=== PATIENT | male | born 1960 | race Caucasian/White ===

== ENCOUNTER 2019-12-30 00:55 | Inpatient (IN) | payer BC ==
[2019-12-30] MEDS ORDERED: ACETAMINOPHEN TAB 325 MG TAB PO PRN (01:14)
[2019-12-30] MEDS ORDERED: NALOXONE 0.4 MG/ML 1 ML VIAL IV PRN ×2 (01:15→09:08)
[2019-12-30] MEDS ORDERED: dexAMETHasone 2 MG TAB PO ONE (01:30)
--- NOTE | 2019-12-30 02:32 | ED ---
General Adult HPI - General Source: patient, EMS, RN notes reviewed Mode of arrival: EMS Limitations: no limitations <Antonio Banks - Last Filed: 12/30/19 02:25> <Barbara Galo - Last Filed: 12/30/19 07:59> - General Chief complaint: Shortness of Breath Stated complaint: dyspnea Time Seen by Provider: 12/30/19 01:17 - History of Present Illness Initial comments: 59-year-old male with a past medical history of hypertension presents from [facility] for positive Covid test and shortness of breath. Patient has had symptoms for the past 10 days. He reports he has had a cough and is now feeling short of breath. Patient was found to have low oxygenation while at [facility] 92-95% while resting and down into the 80s with any type of exertion. CT at that time showed patchy groundglass and pulmonary opacities in the upper and lower lung [place]. 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 Patient was not received within imaging disc for CAT scan or x-ray. (Antonio Banks) - Related Data Allergies Allergy/AdvReac Type Severity Reaction Status Date / Time No Known Drug Allergies Allergy Anaphylaxis Verified 12/30/19 01:42 Review of Systems ROS Other: All systems not noted in ROS Statement are negative. <Antonio Banks - Last Filed: 12/30/19 02:25> ROS Other: All systems not noted in ROS Statement are negative. <Barbara Galo P - Last Filed: 12/30/19 07:59> ROS Statement: Those systems with pertinent positive or pertinent negative responses have been documented in the HPI. Past Medical History Past Medical History: Hypertension Additional Past Surgical History / Comment(s): Urinary tract hx Past Psychological History: No Psychological Hx Reported <Antonio Banks - Last Filed: 12/30/19 02:25> General Exam Limitations: no limitations General appearance: alert, in no apparent distress Head exam: Present: atraumatic, normocephalic, normal inspection Eye exam: Present: normal appearance, PERRL, EOMI. Absent: scleral icterus, conjunctival injection, periorbital swelling ENT exam: Present: normal exam, mucous membranes moist Neck exam: Present: normal inspection, full ROM. Absent: tenderness, meningismus, lymphadenopathy Respiratory exam: Present: normal lung sounds bilaterally. Absent: respiratory distress, wheezes, rales, rhonchi, stridor Cardiovascular Exam: Present: regular rate, normal rhythm, normal heart sounds. Absent: systolic murmur, diastolic murmur, rubs, gallop, clicks <Antonio Banks - Last Filed: 12/30/19 02:25> Course Vital Signs 12/30/19 12/30/19 12/30/19 01:33 02:25 02:59 Temperature 98.5 F Pulse Rate 82 Respiratory 18 18 Rate Blood Pressure 151/116 144/98 O2 Sat by Pulse 96 Oximetry 12/30/19 12/30/19 03:01 06:53 Temperature Pulse Rate 76 70 Respiratory 18 18 Rate Blood Pressure 125/45 O2 Sat by Pulse 97 98 Oximetry Medical Decision Making <Antonio Banks - Last Filed: 12/30/19 02:25> - Lab Data Result diagrams: 12/30/19 01:44 12/30/19 01:44 <Barbara Galo P - Last Filed: 12/30/19 07:59> - Medical Decision Making Patient is 96% on 4 L here in the emergency room. Vitals are otherwise stable. Patient is mildly hypertensive however is anxious at this time. Laboratory evaluation is relatively unremarkable. White count of 7. Hemoglobin of 15.1. Lymphocytes 0.8. D-dimer 0.51. Troponin 5 and 4 with a reference range of 2- 20. ABG shows pO2 of 73. Patient will be admitted for further monitoring with pulmonary consultation. (Antonio Banks) Disposition Is patient prescribed a controlled substance at d/c from ED?: No Time of Disposition: 02:31 <Antonio Banks - Last Filed: 12/30/19 02:25> <Barbara Galo P - Last Filed: 12/30/19 07:59> Clinical Impression: COVID-19, Acute respiratory failure with hypoxia Disposition: ADMITTED IP TO THIS HOSP Condition: Critical
[2019-12-30 02:33] LABS: Basophils # (A) 0.1 k/uL (0-0.2); Basophils % (A) 1 %; Eosinophils % (A) 0 %; HCT 45.8 % (39.0-53.0); HGB 15.5 gm/dL (13.0-17.5); Lymphocytes # (A) 0.4 k/uL (1.0-4.8); Lymphocytes % (A) 8 %; MCH 31.9 pg (25.0-35.0); MCHC 33.9 g/dL (31.0-37.0); MCV 94.3 fL (80.0-100.0); Mean Platelet Volume 6.8; Monocytes # (A) 0.3 k/uL (0-1.0); Monocytes % (A) 5 %; Neutrophils # (A) 4.2 k/uL (1.3-7.7); Neutrophils % (A) 82 %; Platelet Count 387 k/uL (150-450); RBC 4.86 m/uL (4.30-5.90); RDW 12.6 % (11.5-15.5); WBC 5.1 k/uL (3.8-10.6)
[2019-12-30] MEDS ORDERED: SODIUM CHLORIDE 0.9% 500 ML 500 ML IV STA (02:36)
[2019-12-30] MEDS ORDERED: SODIUM CHLORIDE 0.9% 1,000 ML IV STA (02:36)
[2019-12-30 02:46] LABS: D-Dimer 0.45 mg/L FEU (<0.60); Partial Thromboplastin Time 22.8 sec (22.0-30.0); Prothrombin Time 10.2 sec (9.0-12.0)
[2019-12-30 02:50] LABS: ALT 39 U/L (4-49); AST 43 U/L (17-59); African American GFR (CKD) >90 (>60 ml/min/1.73 sqM); Albumin 3.4 g/dL (3.5-5.0); Alkaline Phosphatase 54 U/L (38-126); Anion Gap 8 mmol/L; Blood Urea Nitrogen 25 mg/dL (9-20); C Reactive Protein 29.8 mg/L (<10.0); Calcium 8.8 mg/dL (8.4-10.2); Carbon Dioxide 21 mmol/L (22-30); Chloride 109 mmol/L (98-107); Glucose 142 mg/dL (74-99); LDH 664 U/L (313-618); Non-African American GFR(CKD) >90 (>60 ml/min/1.73 sqM); Potassium 4.5 mmol/L (3.5-5.1); Sodium 138 mmol/L (137-145); Total Bilirubin 0.7 mg/dL (0.2-1.3); Total Protein 6.5 g/dL (6.3-8.2)
[2019-12-30] MEDS ORDERED: PNEUMONIA PROTOCOL UTILIZED 1 EACH MISC PO PRN (09:08)
[2019-12-30] MEDS ORDERED: bisacodyL 5 MG TABLET.DR PO PRN (09:08)
[2019-12-30] MEDS ORDERED: ALPRAZolam 0.25 MG TAB PO PRN (09:08)
[2019-12-30] MEDS ORDERED: ONDANSETRON 4 MG/2 ML VIAL IVP PRN (09:08)
[2019-12-30] MEDS ORDERED: HYDROcodone/APAP 5-325MG 1 EACH TAB PO PRN (09:08)
[2019-12-30] MEDS ORDERED: MORPHINE SULFATE 4 MG/ML SYRINGE IV PRN (09:08)
[2019-12-30] MEDS ORDERED: BENZOCAINE/MENTHOL LOZENG 1 EACH LOZENGE MUCOUS MEM PRN (09:08)
[2019-12-30 09:41] LABS: Ferritin 902.1 ng/mL (22.0-322.0)
[2019-12-30] MEDS: guaiFENesin 600 MG TABLET.ER PO SCH ×2 (09:58→21:39)
[2019-12-30] MEDS: dexAMETHasone 2 MG TAB PO SCH (09:59)
[2019-12-30] MEDS: SODIUM CHLORIDE 0.9% 1,000 ML IV SCH ×3 (10:01→19:39)
--- NOTE | 2019-12-30 13:13 | XR ---
EXAMINATION TYPE: XR chest 2V DATE OF EXAM: 12/30/2019 COMPARISON: NONE HISTORY: Shortness of breath TECHNIQUE: Frontal and lateral views of the chest are obtained. FINDINGS: Scattered senescent parenchymal changes noted. Hyperinflation compatible with COPD. Mild patchy basilar densities may reflect developing infiltrate. Correlate clinically and progress st udies are recommended. Heart size is stable. Mediastinal structures are stable and grossly unremarkable. No evidence for hilar prominence. Degenerative changes dorsal spine. IMPRESSION: 1. Mild patchy basilar densities may reflect developing infiltrate. Correlate clinically and progress studies are recommended.
[2019-12-30] MEDS: ALBUTEROL HFA INHALER INHALATION PRN ×2 (13:36→19:51)
--- NOTE | 2019-12-30 18:22 | P.HPIM ---
History of Present Illness H&P Date: 12/30/19 (notifed of patient at 0800) Chief Complaint: shortness of breath Patient is a 59-year-old male with a past medical history of hypertension who presented as a transfer [facility] due to Coreg 19 infection. Blood [place] he underwent an extensive evaluation. He was found to be positive for COVID 19. He underwent a CT of the chest which was negative for any signs of pulmonary embolism but did demonstrate bilateral interstitial infiltrates. He was noted to have room air saturation of 92-95% on resting and down to the 80s of any type of exertion He was requiring oxygen at 4 L nasal cannula. There he was started on IV fluids and was transferred here for further monitoring. He had been confirmed as a positive on 12/19. In the ER he was started on dexamethasone. Patient seen and examined at bedside in the ER. He reports that he was diagnosed with Covid 19 approximately 11 days ago. He states that he first noti romulo a loss of taste and smell and then started having sinus symptoms. Initially he was feeling better, his sense of taste and smell returned, his body aches improved, and his overall fatigue improved. However 3 days ago his dyspnea became worse and he started feeling worse. His children are concerned about how short of breath he wasn't unable to do his normal activities and the therefore asked him to come to the emergency department. He denies any nausea, vomiting, or diarrhea. He reports shortness of breath that is worse when talking and with ambulation and better at rest. He reports that his appetite has been decreased due to his work of breathing. He has no other complaints currently. Review of Systems Pertinent positives and negatives as discussed in HPI, a complete review of systems was performed and all other systems are negative. Past Medical History Past Medical History: Hyperlipidemia, Hypertension History of Any Multi-Drug Resistant Organisms: None Reported Additional Past Surgical History / Comment(s): Urinary tract hx Past Psychological History: No Psychological Hx Reported - Past Family History Mother Family Medical History: Diabetes Mellitus, Hypertension, Myocardial Infarction ([place]) Father Additional Family Medical History / Comment(s): Myasthenia Gravis Medications and Allergies Home Medications Medication Instructions Recorded Confirmed Type Atorvastatin [Lipitor] 40 mg PO DAILY 12/30/19 12/30/19 History Telmisartan 80 mg PO DAILY 12/30/19 12/30/19 History Allergies Allergy/AdvReac Type Severity Reaction Status Date / Time No Known Drug Allergies Allergy Anaphylaxis Verified 12/30/19 08:21 Physical Exam Osteopathic Statement: *. No significant issues noted on an osteopathic structural exam other than those noted in the History and Physical/Consult. Vitals: Vital Signs Temp Pulse Resp BP Pulse Ox 12/30/19 06:53 70 18 125/45 98 12/30/19 03:01 76 18 97 12/30/19 02:59 144/98 12/30/19 02:25 18 12/30/19 01:33 98.5 F 82 18 151/116 96 Intake and Output 12/29/19 12/30/19 12/30/19 22:59 06:59 14:59 Other: Weight 108.862 kg General: Ill-appearing, moderate distress, appears at stated age Derm: warm, dry Head: atraumatic, normocephalic, symmetric Eyes: EOMI, no lid lag, anicteric sclera, pupils equal round reactive to light ENT: Nose and ears atraumatic, no thrush, no pharyngeal erythema Neck: No thyromegaly, no cervical lymphadenopathy, trachea midline, supple Mouth: no lip lesion, mucus membranes dry Cardiovascular: S1S2 reg tachycardic, positive posterior tibial pulse bilateral, no edema, capillary refill less than 2 seconds Lungs: Faint rhonchi bilateral bases, no accessory muscle use Abdominal: soft, nontender to palpation, no guarding, no appreciable organomegaly, normal bowel sounds Ext: no gross muscle atrophy, muscle strength muscle strength 5 out of 5 in all 4 extremities, no contractures Neuro: CN II-XI grossly intact, light touch intact all 4 extremities, finger to nose within normal limits, Psych: Alert, oriented, appropriate affect Results CBC & Chem 7: 12/30/19 01:44 12/30/19 01:44 Labs: Abnormal Lab Results - Last 24 Hours (Table) 12/30/19 12/30/19 Range/Units 01:44 01:44 Lymphocytes # 0.4 L (1.0-4.8) k/uL Chloride 109 H (98-107) mmol/L Carbon Dioxide 21 L (22-30) mmol/L BUN 25 H (9-20) mg/dL Glucose 142 H (74-99) mg/dL Lactate Dehydrogenase 664 H (313-618) U/L C-Reactive Protein 29.8 H (<10.0) mg/L Albumin 3.4 L (3.5-5.0) g/dL Assessment and Plan Assessment: Covid 19 pneumonia with acute hypoxic respiratory failure -Continue with dexamethasone -Consult pulmonary - Not candidate for remdesevir due to length of symptoms -Due to his initial improvement and then worsening will await pro-calcitonin, continue with doxycycline and Rocephin for possible bacterial pneumonia -Fluid and B are negative -Mucinex -Sputum culture if able -Vitamin C, zinc, and vitamin D -D-dimer normal -Follow ferritin, LDH, CPK, and troponin Hypertension, controlled -Hold ARB -Follow blood pressures Dyslipidemia -Lipitor The patient is admitted with an anticipated greater than 2 midnight stay for evaluation of Covid 19 pneumonia with associated hypoxemia. Surrogate decision-maker: Oldest son Elie CODE STATUS: Full DVT prophylaxis: Lovenox Discussed with: rylee Hensley Anticipated discharge date: 3-[address]: home A total of 65 minutes was spent on the care of this complex patient more than 50% of the time was spent in counseling and care coordination.
[2019-12-30] MEDS: ZINC SULFATE 220 MG CAP PO SCH (19:39)
[2019-12-30] MEDS: DOXYCYCLINE 100 MG in SODIUM CHLORIDE 0.9% 100 ML IVPB SCH (19:40)
[2019-12-30] MEDS ORDERED: MELATONIN 3 MG TABLET PO SCH (21:00)
[2019-12-30] MEDS: MELATONIN 5 MG TABLET PO SCH (21:40)
[2019-12-31 05:58] LABS: Basophils # (A) 0.1 k/uL (0-0.2); Basophils % (A) 0 %; Eosinophils % (A) 0 %; HCT 41.5 % (39.0-53.0); HGB 13.8 gm/dL (13.0-17.5); Lymphocytes # (A) 0.8 k/uL (1.0-4.8); Lymphocytes % (A) 6 %; MCH 32.1 pg (25.0-35.0); MCHC 33.3 g/dL (31.0-37.0); MCV 96.3 fL (80.0-100.0); Mean Platelet Volume 7.6; Monocytes # (A) 0.8 k/uL (0-1.0); Monocytes % (A) 6 %; Neutrophils # (A) 11.6 k/uL (1.3-7.7); Neutrophils % (A) 86 %; Platelet Count 375 k/uL (150-450); RBC 4.31 m/uL (4.30-5.90); RDW 12.7 % (11.5-15.5); WBC 13.5 k/uL (3.8-10.6)
[2019-12-31 06:14] LABS: D-Dimer 0.86 mg/L FEU (<0.60); INR 1.1 (<1.2); Partial Thromboplastin Time 22.6 sec (22.0-30.0); Prothrombin Time 10.8 sec (9.0-12.0)
[2019-12-31] MEDS: ALBUTEROL HFA INHALER INHALATION PRN ×3 (07:38→16:57)
[2019-12-31] MEDS: SODIUM CHLORIDE 0.9% 1,000 ML IV SCH ×2 (09:20→13:24)
[2019-12-31] MEDS: ZINC SULFATE 220 MG CAP PO SCH (09:21)
[2019-12-31] MEDS: DOXYCYCLINE 100 MG in SODIUM CHLORIDE 0.9% 100 ML IVPB SCH ×2 (09:21→21:57)
[2019-12-31] MEDS: CHOLECALCIFEROL 400 UNIT TAB PO SCH (09:21)
[2019-12-31] MEDS: ASCORBIC ACID 500 MG TAB PO SCH (09:21)
[2019-12-31] MEDS: guaiFENesin 600 MG TABLET.ER PO SCH ×2 (09:21→21:46)
[2019-12-31 09:36] LABS: African American GFR (CKD) 96.4 (60.0-200.0); Anion Gap 7.8 mmol/L (4.00-12.00); C Reactive Protein 0.9 mg/dL (0.0-0.8); Calcium 8.8 mg/dL (8.7-10.3); Carbon Dioxide 22.2 mmol/L (21.6-31.8); Magnesium 1.8 mg/dL (1.5-2.4); Non-African American GFR(CKD) 83.2 (60.0-200.0); Potassium 4.5 mmol/L (3.5-5.5)
[2019-12-31 09:47] LABS: Ferritin 756.9 ng/mL (22.0-322.0)
--- NOTE | 2019-12-31 10:02 | ECHOF ---
Referral Reason:shortness of breath MEASUREMENTS -------- HEIGHT: 182.9 cm WEIGHT: 108.9 kg BP: RVIDd: 2.8 cm (< 3.3) IVSd: 1.5 cm (0.6 - 1.1) LVIDd: 4.1 cm (3.9 - 5.3) LVPWd: 1.8 cm (0.6 - 1.1) IVSs: 2.1 cm LVIDs: 3.1 cm LVPWs: 1.9 cm LA Diam: 4.3 cm (2.7 - 3.8) Ao Diam: 3.4 cm (2.0 - 3.7) AV Cusp: 2.6 cm (1.5 - 2.6) LA Diam: 4.7 cm (2.7 - 3.8) MV EXCURSION: 16.774 mm (> 18.000) MV EF SLOPE: 69 mm/s (70 - 150) EPSS: 0.4 cm MV E Onofre: 0.73 m/s MV DecT: 163 ms MV A Onofre: 0.75 m/s MV E/A Ratio: 0.98 RAP: 5.00 mmHg RVSP: 12.04 mmHg FINDINGS -------- Sinus rhythm. This was a technically adequate study. The left ventricular size is normal. There is moderate concentric left ventricular hypertrophy. O verall left ventricular systolic function is low-normal with, an EF between 50 - 55 %. The right ventricle is normal in size. The left atrium is mildly dilated. The right atrial size is normal. There is mild aortic valve sclerosis. There is no evidence of aortic regurgitation. Mild mitral regurgitation is present. Mild tricuspid regurgitation present. Right ventricular systolic pressure is normal at < 35 mmHg. There is no pulmonic regurgitation present. The aortic root size is normal. There is no pericardial effusion. CONCLUSIONS -------- 1. The left ventricular size is normal. 2. There is moderate concentric left ventricular hypertrophy. 3. Overall left ventricular systolic function is low-normal with, an EF between 50 - 55 %. 4. The right ventricle is normal in size. 5. The left atrium is mildly dilated. 6. The right atrial size is normal. 7. There is mild aortic valve sclerosis. 8. Mild mitral regurgitation is present. 9. Mild tricuspid regurgitation present. 10. There is no pulmonic regurgitation present. 11. The aortic root size is normal. 12. There is no pericardial effusion. FREELANCE COURT REPORTER: Soraya Betts RDCS
[2019-12-31] MEDS: dexAMETHasone 2 MG TAB PO SCH (10:08)
--- NOTE | 2019-12-31 15:47 | P.PN ---
Subjective Progress Note Date: 12/31/19 (delayed charting seen at 1000 ) Principal diagnosis: shortness of breath Patient is a 59-year-old male with a past medical history of hypertension who presented as a transfer from [facility] [place] due to Coreg 19 infection. Blood [place] he underwent an extensive evaluation. He was found to be positive for COVID 19. He underwent a CT of the chest which was negative for any signs of pulmonary embolism but did demonstrate bilateral interstitial infiltrates. He was noted to have room air saturation of 92-95% on resting and down to the 80s of any type of exertion He was requiring oxygen at 4 L nasal cannula. There he was started on IV fluids and was transferred here for further monitoring. He had been confirmed COVID-19 positive on 12/19. In the ER he was started on dexamethasone. His was also started on rocehphin and doxycycline for possible secondary bacterial pneumonia. He was not a candidate for remdesevir due to duration of symptoms. Patient seen and examined at bedside. Still with SOB and chest pain, no nausea, no vomiting, no diarrhea. Appetite well. All questions answered regarding discharge plan. General: ill appearing, mild distress, appears at stated age Derm: warm, dry Head: atraumatic, normocephalic, symmetric Eyes: EOMI, no lid lag, anicteric sclera Mouth: no lip lesion, mucus membranes dry Cardiovascular: S1S2 reg, no murmur, positive posterior tibial pulse bilateral, Lungs: rhonchi left base, no accessory muscle use Abdominal: soft, nontender to palpation, no guarding, no appreciable orga nomegaly Ext: no gross muscle atrophy, no edema, no contractures Neuro: CN II-XI grossly intact, no focal neuro deficits Psych: Alert, oriented, appropriate affect Covid 19 pneumonia with acute hypoxic respiratory failure - Continue with dexamethasone - Await pulm recs - Not candidate for remdesevir due to length of symptoms - Procalcitonin normal, will stop ABX - Flu A and B are negative - Mucinex - Sputum culture if able - Vitamin C, zinc, and vitamin D - D-dimer mild elevation - Ferritin and LDH improving - CPK normal - troponin normal - echo normal Hypertension, controlled - Hold ARB - Follow blood pressures Dyslipidemia - Lipitor DVT prophylaxis: Lovenox Discussed with: rylee Hensley Anticipated discharge date: 2-[address]: home A total of 45 minutes was spent on the care of this complex patient more than 50% of the time was spent in counseling and care coordination. Objective - Vital Signs Vital signs: Vital Signs Temp 97.7 F 12/31/19 13:00 Pulse 63 12/31/19 13:00 Resp 20 12/31/19 13:00 BP 144/91 12/31/19 13:00 Pulse Ox 97 12/31/19 13:00 Intake & Output 12/30/19 12/31/19 12/31/19 18:59 06:59 18:59 Intake Total 1000 Balance 1000 Intake: Oral 1000 Other: # Voids 2 - Labs CBC & Chem 7: 12/31/19 04:56 12/31/19 04:56 Labs: Abnormal Lab Results - Last 24 Hours (Table) 12/31/19 12/31/19 12/31/19 Range/Units 04:56 04:56 04:56 WBC 13.5 H (3.8-10.6) k/uL Neutrophils # 11.6 H (1.3-7.7) k/uL Lymphocytes # 0.8 L (1.0-4.8) k/uL D-Dimer 0.86 H (<0.60) mg/L FEU BUN/Creatinine Ratio 21.00 H (12.00-20.00) Ratio Glucose 128 H (70-110) mg/dL Ferritin 756.9 H (22.0-322.0) ng/mL Lactate Dehydrogenase 335 H (120-246) U/L C-Reactive Protein 0.9 H (0.0-0.8) mg/dL Microbiology - Last 24 Hours (Table) 12/30/19 09:32 Blood Culture - Preliminary Blood No Growth after 24 hours 12/30/19 09:22 Blood Culture - Preliminary Blood No Growth after 24 hours 12/30/19 01:44 Blood Culture - Preliminary Blood No Growth after 24 hours
--- NOTE | 2019-12-31 16:47 | CONS ---
CONSULTATION PULMONARY/CRITICAL CARE CONSULTATION: DATE OF SERVICE: 12/31/2019 This is a 59-year-old gentleman who resides in the [facility]. He has a history of hypertension. The patient was tested for COVID and was tested positive. He has not been feeling well for the last 7 or 10 days or so. His complaints include chest tightness, cough, shortness of breath, chest congestion. His saturations were apparently in the low normal range at the [facility]. But when he was exerting himself, his saturations dropped down into the 80s. His chest CT apparently showed classic patchy ground-glass opacities consistent with COVID pneumonitis. They apparently had no beds up in that area, and the patient was transferred down here. Currently, he is feeling okay. He feels a bit better today than he did yesterday. His complaints are similar to what I have mentioned including shortness of breath, chest congestion, cough, chest tightness, and minimal phlegm production. ALLERGIES: Denied. HOME MEDICATIONS: Include telmisartan and atorvastatin. MEDICAL HISTORY: Hypertension and hyperlipidemia. SURGICAL HISTORY: Remote. FAMILY HISTORY: Positive for mother with diabetes, hypertension, myocardial infarction and a father with myasthenia gravis. ALLERGIES: Denied. Medications as I mentioned. SOCIAL HISTORY: Negative for tobacco, alcohol or illicit drug use. REVIEW OF SYSTEMS: CONSTITUTIONAL: Negative. NEUROLOGIC: Negative. HEENT: Negative. CARDIOVASCULAR: Negative. PULMONARY: Shortness of breath, chest congestion, chest tightness, cough, minimal phlegm production. GI: Negative. : Negative. RHEUMATOLOGIC: Negative. IMMUNOLOGIC: Negative. ENDOCRINOLOGIC: Negative. DERMATOLOGIC: Negative. Currently, vital signs are reviewed. Temperature is 97.7, heart rate 63, respiratory rate 20, blood pressure 144/91 mean 108, 3 L saturation 97%. Appears in no acute distress. He was eating his lunch at the time of the evaluation. There is no conversational dyspnea, use of accessory muscles or audible wheezing. HEENT: Examination is grossly unremarkable. NECK: Supple, full range of motion. No adenopathy. Neck veins are flat. CARDIOVASCULAR: Examination reveals regular rhythm and rate. S1, S2 normal. LUNGS: Reveal a few scattered rhonchi. Breath sounds are not too bad. No wheezes or crackles. ABDOMEN: Soft, bowel sounds are heard. EXTREMITIES: Intact. No cyanosis, clubbing, or edema. SKIN: Without rash. NEUROLOGIC: Examination is brief but nonfocal. LABS: Reviewed. White count 13.5, hemoglobin 13.8, hematocrit 41.5, platelet count 375,000. PT, INR, PTT normal. D-dimer 0.84 and then followup with 0.86. Sodium 138, potassium 4.5, chloride 108, CO2 is 22, anion gap is 7.8, BUN and creatinine were 21 and 1, glucose 128, ferritin 756 and LDH was 335, which is down from 664. C-reactive protein continues to decline from 29.8 to 26.8 to 0.9. Procalcitonin was 0.05. Microbiologic biologic studies are negative. Chest x-ray shows some very mild patchy basilar densities. ASSESSMENT: 1. COVID-19 pneumonitis/pneumonia, relatively mild at this point. 2. History of hypertension. 3. Hyperlipidemia. 4. Mild hypoxemia. PLAN: Currently, the patient is doing well. He does not need Remdesivir at this time. Currently, he is on ceftriaxone. He is getting albuterol inhaler. The patient is also on Vibramycin. Probably these antibiotics to be discontinued. The patient is on zinc. The patient should be on melatonin, zinc, vitamin C, vitamin D, Pepcid, and Decadron. Again, standard antibiotics at this time are probably not indicated. His procalcitonin level is low. No need for Remdesivir at this point. Followup chest x-ray. Will continue to follow. MMODL / IJN: [id number] /
[2020-01-01] MEDS: ALBUTEROL HFA INHALER INHALATION PRN ×4 (00:14→19:38)
[2020-01-01] MEDS: MELATONIN 5 MG TABLET PO SCH ×2 (01:49→20:54)
[2020-01-01] MEDS: guaiFENesin 600 MG TABLET.ER PO SCH ×2 (08:56→20:39)
[2020-01-01] MEDS: ASCORBIC ACID 500 MG TAB PO SCH (08:56)
[2020-01-01] MEDS: ZINC SULFATE 220 MG CAP PO SCH (08:56)
[2020-01-01] MEDS: CHOLECALCIFEROL 400 UNIT TAB PO SCH (08:56)
[2020-01-01] MEDS: dexAMETHasone 2 MG TAB PO SCH (08:56)
[2020-01-01] MEDS: DOXYCYCLINE 100 MG in SODIUM CHLORIDE 0.9% 100 ML IVPB SCH (08:57)
--- NOTE | 2020-01-01 09:56 | XR ---
EXAMINATION TYPE: XR chest 1V portable DATE OF EXAM: 01/01/2020 CLINICAL HISTORY: Difficulty breathing and covid pneumonia progress study. TECHNIQUE: Single AP portable upright view of the chest is obtained. COMPARISON: Chest x-ray from 2 days earlier FINDINGS: Persistent low lung volumes with right mid lung and peripheral left mid to lower lung incr eased opacity. Patchy opacity right upper lung redemonstrated. No pleural effusion or pneumothorax se en bilaterally. Cardiac silhouette size stable and upper limits of normal with ectatic aortic knob ca using right-sided tracheal deviation redemonstrated. Osseous structures are intact. Overlying EKG alanna ds. IMPRESSION: Low lung volumes with persistent bilateral multifocal acute infiltrates greatest in the p eriphery. No significant change from prior. Findings correlate with covid-19 infection.
[2020-01-01 10:40] LABS: Basophils # (A) 0.1 k/uL (0-0.2); Basophils % (A) 1 %; Eosinophils % (A) 0 %; HCT 41.2 % (39.0-53.0); HGB 13.8 gm/dL (13.0-17.5); Lymphocytes # (A) 1.2 k/uL (1.0-4.8); Lymphocytes % (A) 12 %; MCH 31.8 pg (25.0-35.0); MCHC 33.4 g/dL (31.0-37.0); MCV 95.3 fL (80.0-100.0); Mean Platelet Volume 7.2; Monocytes # (A) 0.8 k/uL (0-1.0); Monocytes % (A) 8 %; Neutrophils # (A) 7.7 k/uL (1.3-7.7); Neutrophils % (A) 77 %; Platelet Count 351 k/uL (150-450); RBC 4.33 m/uL (4.30-5.90); RDW 12.8 % (11.5-15.5); WBC 10.1 k/uL (3.8-10.6)
[2020-01-01 10:56] LABS: ALT 51 U/L (4-49); AST 31 U/L (17-59); African American GFR (CKD) >90 (>60 ml/min/1.73 sqM); Albumin 2.8 g/dL (3.5-5.0); Alkaline Phosphatase 48 U/L (38-126); Anion Gap 3 mmol/L; Blood Urea Nitrogen 17 mg/dL (9-20); Calcium 8.5 mg/dL (8.4-10.2); Carbon Dioxide 28 mmol/L (22-30); Chloride 107 mmol/L (98-107); Globulin 2.7 g/dL; Glucose 113 mg/dL (74-99); Non-African American GFR(CKD) >90 (>60 ml/min/1.73 sqM); Potassium 4.1 mmol/L (3.5-5.1); Sodium 138 mmol/L (137-145); Total Bilirubin 0.5 mg/dL (0.2-1.3); Total Protein 5.5 g/dL (6.3-8.2)
[2020-01-01] MEDS: SODIUM CHLORIDE 0.9% 1,000 ML IV SCH ×2 (11:13→13:45)
--- NOTE | 2020-01-01 12:40 | P.PN ---
Subjective Progress Note Date: 01/01/20 (delayed charting see at 1030) Principal diagnosis: shortness of breath Patient is a 59-year-old male with a past medical history of hypertension who presented as a transfer from [facility] [place] due to Coreg 19 infection. Blood [place] he underwent an extensive evaluation. He was found to be positive for COVID 19. He underwent a CT of the chest which was negative for any signs of pulmonary embolism but did demonstrate bilateral interstitial infiltrates. He was noted to have room air saturation of 92-95% on resting and down to the 80s of any type of exertion He was requiring oxygen at 4 L nasal cannula. There he was started on IV fluids and was transferred here for further monitoring. He had been confirmed COVID-19 positive on 12/19. In the ER he was started on dexamethasone. His was also started on rocehphin and doxycycline for possible secondary bacterial pneumonia. He was not a candidate for remdesevir due to duration of symptoms. He continued to improve slowly. Pulmonary in agreement with zinc, vit C, vit D, melatonin, and dexamethasone. Patient seen and examined at bedside.Feeling better shortness of breath i mproving, chest pain improving, appetite intact, feeling a little better. All questions answered regarding discharge plan, likely d/c tomorrow or Sunday with wheelchair van General: ill appearing, no distress, appears at stated age Derm: warm, dry Head: atraumatic, normocephalic, symmetric Eyes: EOMI, no lid lag, anicteric sclera Mouth: no lip lesion, mucus membranes dry Cardiovascular: S1S2 reg, no murmur, positive posterior tibial pulse bilateral, Lungs Decreased bs bilateral, no accessory muscle use Abdominal: soft, nontender to palpation, no guarding, no appreciable organomegaly Ext: no gross muscle atrophy, no edema, no contractures Neuro: CN II-XI grossly intact, no focal neuro deficits Psych: Alert, oriented, appropriate affect Covid 19 pneumonia with acute hypoxic respiratory failure, costochondritis - Continue with dexamethasone - Pulm recs appreciated - Not candidate for remdesevir due to length of symptoms - Procalcitonin normal off abx - Flu A and B are negative - Mucinex - Vitamin C, zinc, and vitamin D - melatonin - D-dimer mild elevation - Ferritin and LDH improving - CPK normal - troponin normal - echo normal Hypertension, controlled - Hold ARB - Follow blood pressures Dyslipidemia - Lipitor DVT prophylaxis: Lovenox Discussed with: rylee Hensley Anticipated discharge date: in 1-2 days, working on way to get back to [facility] Anticipated discharge place: home A total of 30 minutes was spent on the care of this complex patient more than 50% of the time was spent in counseling and care coordination. Objective - Vital Signs Vital signs: Vital Signs Temp 97.8 F 01/01/20 11:19 Pulse 68 01/01/20 11:19 Resp 20 01/01/20 11:19 BP 134/76 01/01/20 11:19 Pulse Ox 94 L 01/01/20 11:19 Intake & Output 12/31/19 01/01/20 01/01/20 18:59 06:59 18:59 Intake Total 1050 825 Balance 1050 825 Intake: Intake, IV Titration 325 Amount Doxycycline 100 mg In 100 Sodium Chloride 0.9% 100 ml @ 100 mls/hr IVPB Q12HR [facility] Rx#:[id number] Sodium Chloride 0.9% 1, 225 000 ml @ 75 mls/hr IV . [id number] [facility] Rx#:[id number] Oral 1050 500 Other: # Voids 2 2 # Bowel Movements 0 - Labs CBC & Chem 7: 01/01/20 10:18 01/01/20 10:18 Labs: Abnormal Lab Results - Last 24 Hours (Table) 01/01/20 Range/Units 10:18 Glucose 113 H (74-99) mg/dL ALT 51 H (4-49) U/L Total Protein 5.5 L (6.3-8.2) g/dL Albumin 2.8 L (3.5-5.0) g/dL Microbiology - Last 24 Hours (Table) 12/30/19 09:22 Blood Culture - Preliminary Blood No Growth after 48 hours 12/30/19 09:32 Blood Culture - Preliminary Blood No Growth after 48 hours 12/30/19 01:44 Blood Culture - Preliminary Blood No Growth after 48 hours
--- NOTE | 2020-01-01 14:36 | P.PN ---
Subjective Progress Note Date: 01/01/20 Principal diagnosis: COVID 19 pneumonitis On 01/01/2020 patient seen in follow-up on medical surgical floor. She is awake and alert, he is ambulating in the room, he remains on supplemental oxygen, currently on 2 L with a pulse ox of 94%, his breathing is comfortable, he does have a mild headache, and it did have some nosebleeds. No chest discomfort, no palpitations, today's labs reviewed, CBC was within normal limits, electrolytes and renal profile were within normal limits, pro-calcitonin level came back negative at 0.05. Patient has been afebrile overnight, blood cu ltures have been negative. CRP is trending down, LDH trending down. Reports no nausea vomiting or diarrhea. Remains on oral Decadron, IV hydration, zinc and vitamin C supplements Objective - Vital Signs Vital signs: Vital Signs Temp 97.8 F 01/01/20 11:19 Pulse 68 01/01/20 11:19 Resp 20 01/01/20 11:19 BP 134/76 01/01/20 11:19 Pulse Ox 94 L 01/01/20 11:19 Intake & Output 12/31/19 01/01/20 01/01/20 18:59 06:59 18:59 Intake Total 1050 825 Balance 1050 825 Intake: Intake, IV Titration 325 Amount Doxycycline 100 mg In 100 Sodium Chloride 0.9% 100 ml @ 100 mls/hr IVPB Q12HR [facility] Rx#:[id number] Sodium Chloride 0.9% 1, 225 000 ml @ 75 mls/hr IV . [id number] [facility] Rx#:[id number] Oral 1050 500 Other: # Voids 2 2 # Bowel Movements 0 - Exam GENERAL EXAM: Alert, very pleasant, 59-year-old white male on 2 L of oxygen a pulse ox of 94% comfortable in no apparent distress. HEAD: Normocephalic/atraumatic. EYES: Normal reaction of pupils, equal size. Conjunctiva pink, sclera white. NOSE: Clear with pink turbinates. THROAT: No erythema or exudates. NECK: No masses, no JVD, no thyroid enlargement, no adenopathy. CHEST: No chest wall deformity. Symmetrical expansion. LUNGS: Equal air entry with no crackles, wheeze, rhonchi or dullness. CVS: Regular rate and rhythm, normal S1 and S2, no gallops, no murmurs, no rubs ABDOMEN: Soft, nontender. No hepatosplenomegaly, normal bowel sounds, no guarding or rigidity. EXTREMITIES: No clubbing, no edema, no cyanosis, 2+ pulses and upper and lower extremities. MUSCULOSKELETAL: Muscle strength and tone normal. SPINE: No scoliosis or deformity SKIN: No rashes CENTRAL NERVOUS SYSTEM: Alert and oriented -3. No focal deficits, tone is normal in all 4 extremities. PSYCHIATRIC: Alert and oriented -3. Appropriate affect. Intact judgment and insight. - Labs CBC & Chem 7: 01/01/20 10:18 01/01/20 10:18 Labs: Abnormal Lab Results - Last 24 Hours (Table) 01/01/20 Range/Units 10:18 Glucose 113 H (74-99) mg/dL ALT 51 H (4-49) U/L Total Protein 5.5 L (6.3-8.2) g/dL Albumin 2.8 L (3.5-5.0) g/dL Microbiology - Last 24 Hours (Table) 12/30/19 09:22 Blood Culture - Preliminary Blood No Growth after 48 hours 12/30/19 09:32 Blood Culture - Preliminary Blood No Growth after 48 hours 12/30/19 01:44 Blood Culture - Preliminary Blood No Growth after 48 hours Assessment and Plan Plan: Assessment: #1. Acute hypoxemic respiratory failure related to Coumadin 19 pneumonitis, with relatively mild symptoms at this time #2. Increased inflammatory markers related to the above #3. History of hypertension #4. Hyperlipidemia Plan: Continue oral Decadron, will add Lovenox, continue vitamin C, zinc, no worsening symptoms, continue following inflammatory markers, breathing is comfortable, patient is able to ambulate in the room, no acute events overnight, we'll continue to follow. Monitor febrile pattern, and oxygenation. I performed a history & physical examination of the patient and discussed their management with my nurse practitioner, Maribel Green. I reviewed the nurse practitioner's note and agree with the documented findings and plan of care. Lung sounds are positive for diffuse wheezes throughout the lung coley. The findings and the impression was discussed with the patient. I attest to the documentation by the nurse practitioner. Time with Patient: Less than 30
[2020-01-01] MEDS: ENOXAPARIN 40 MG/0.4 ML SYRINGE SQ SCH (16:01)
[2020-01-02] MEDS: SODIUM CHLORIDE 0.9% 1,000 ML IV SCH (03:36)
[2020-01-02 07:28] LABS: Basophils % (A) 0 %; Eosinophils % (A) 0 %; HCT 40.7 % (39.0-53.0); HGB 13.8 gm/dL (13.0-17.5); Lymphocytes # (A) 1.2 k/uL (1.0-4.8); Lymphocytes % (A) 13 %; MCH 32.2 pg (25.0-35.0); MCHC 33.9 g/dL (31.0-37.0); MCV 95.1 fL (80.0-100.0); Mean Platelet Volume 7.1; Monocytes # (A) 0.9 k/uL (0-1.0); Monocytes % (A) 10 %; Neutrophils % (A) 73 %; Platelet Count 343 k/uL (150-450); RBC 4.28 m/uL (4.30-5.90); RDW 12.7 % (11.5-15.5); WBC 9.5 k/uL (3.8-10.6)
[2020-01-02] MEDS: ALBUTEROL HFA INHALER INHALATION PRN ×3 (07:28→20:45)
[2020-01-02 07:49] LABS: D-Dimer 0.99 mg/L FEU (<0.60); Prothrombin Time 10.5 sec (9.0-12.0)
[2020-01-02 08:11] LABS: Partial Thromboplastin Time 21.8 sec (22.0-30.0)
[2020-01-02] MEDS: guaiFENesin 600 MG TABLET.ER PO SCH ×2 (09:10→21:03)
[2020-01-02] MEDS: dexAMETHasone 2 MG TAB PO SCH (09:10)
[2020-01-02] MEDS: ZINC SULFATE 220 MG CAP PO SCH (09:10)
[2020-01-02] MEDS: ASCORBIC ACID 500 MG TAB PO SCH (09:11)
[2020-01-02] MEDS: CHOLECALCIFEROL 400 UNIT TAB PO SCH (09:11)
[2020-01-02] MEDS: ENOXAPARIN 40 MG/0.4 ML SYRINGE SQ SCH (09:54)
[2020-01-02 11:25] LABS: C Reactive Protein <0.4 mg/dL (0.0-0.8); Creatine Kinase 52 U/L (35-257); Ferritin 435.9 ng/mL (22.0-322.0); LDH 215 U/L (120-246); Magnesium 1.9 mg/dL (1.5-2.4)
--- NOTE | 2020-01-02 14:26 | P.PN ---
Subjective Progress Note Date: 01/02/20 Principal diagnosis: COVID 19 pneumonitis On 01/01/2020 patient seen in follow-up on medical surgical floor. She is awake and alert, he is ambulating in the room, he remains on supplemental oxygen, currently on 2 L with a pulse ox of 94%, his breathing is comfortable, he does have a mild headache, and it did have some nosebleeds. No chest discomfort, no palpitations, today's labs reviewed, CBC was within normal limits, electrolytes and renal profile were within normal limits, pro-calcitonin level came back negative at 0.05. Patient has been afebrile overnight, blood cu ltures have been negative. CRP is trending down, LDH trending down. Reports no nausea vomiting or diarrhea. Remains on oral Decadron, IV hydration, zinc and vitamin C supplements On 01/02/2020 patient seen in follow-up on the general medical surgical floor. He is feeling better today, improving, no worsening dyspnea, no cough, remains on dexamethasone, Lovenox, patient was not a candidate for Remdesivir related to length of symptoms. Patient has been afebrile, vital signs are stable, his ferritin level trending down, his inflammatory markers are improving. Procalcitonin level was negative. Objective - Vital Signs Vital signs: Vital Signs Temp 97.6 F 01/02/20 04:36 Pulse 53 L 01/02/20 04:36 Resp 18 01/02/20 04:36 BP 149/87 01/02/20 04:36 Pulse Ox 96 01/02/20 04:36 Intake & Output 01/01/20 01/02/20 01/02/20 18:59 06:59 18:59 Intake Total 1325 Balance 1325 Intake: Intake, IV Titration 825 Amount Sodium Chloride 0.9% 1, 825 000 ml @ 75 mls/hr IV . [id number] [facility] Rx#:[id number] Oral 500 Other: # Voids 3 0 # Bowel Movements 0 - Exam GENERAL EXAM: Alert, very pleasant, 59-year-old white male on 2 L of oxygen a pulse ox of 94% comfortable in no apparent distress. HEAD: Normocephalic/atraumatic. EYES: Normal reaction of pupils, equal size. Conjunctiva pink, sclera white. NOSE: Clear with pink turbinates. THROAT: No erythema or exudates. NECK: No masses, no JVD, no thyroid enlargement, no adenopathy. CHEST: No chest wall deformity. Symmetrical expansion. LUNGS: Equal air entry with no crackles, wheeze, rhonchi or dullness. CVS: Regular rate and rhythm, normal S1 and S2, no gallops, no murmurs, no rubs ABDOMEN: Soft, nontender. No hepatosplenomegaly, normal bowel sounds, no guarding or rigidity. EXTREMITIES: No clubbing, no edema, no cyanosis, 2+ pulses and upper and lower extremities. MUSCULOSKELETAL: Muscle strength and tone normal. SPINE: No scoliosis or deformity SKIN: No rashes CENTRAL NERVOUS SYSTEM: Alert and oriented -3. No focal deficits, tone is normal in all 4 extremities. PSYCHIATRIC: Alert and oriented -3. Appropriate affect. Intact judgment and insight. - Labs CBC & Chem 7: 01/02/20 06:52 01/01/20 10:18 Labs: Abnormal Lab Results - Last 24 Hours (Table) 01/02/20 01/02/20 01/02/20 Range/Units 06:52 06:52 06:52 RBC 4.28 L (4.30-5.90) m/uL APTT 21.8 L (22.0-30.0) sec D-Dimer 0.99 H (<0.60) mg/L FEU Ferritin 435.9 H (22.0-322.0) ng/mL Microbiology - Last 24 Hours (Table) 12/30/19 09:32 Blood Culture - Preliminary Blood No Growth after 72 hours 12/30/19 09:22 Blood Culture - Preliminary Blood No Growth after 72 hours 12/30/19 01:44 Blood Culture - Preliminary Blood No Growth after 72 hours Assessment and Plan Plan: Assessment: #1. Acute hypoxemic respiratory failure related to Coumadin 19 pneumonitis, with relatively mild symptoms at this time #2. Increased inflammatory markers related to the above, improving #3. History of hypertension #4. Hyperlipidemia Plan: Weaning FiO2, patient is slowly improving, no worsening dyspnea, no fever, inflammatory markers are improving, continue with the DVT prophylaxis, Decadron, vitamin C and zinc supplements. No acute events overnight, the plan is for discharge home tomorrow, patient will need transportation they can provide oxygen, and this is being arranged by medicine. I performed a history & physical examination of the patient and discussed their management with my nurse practitioner, Maribel Green. I reviewed the nurse practitioner's note and agree with the documented findings and plan of care. Lung sounds are positive for diffuse wheezes throughout the lung coley. The findings and the impression was discussed with the patient. I attest to the documentation by the nurse practitioner. Time with Patient: Less than 30
--- NOTE | 2020-01-02 18:13 | P.PN ---
Subjective Progress Note Date: 01/02/20 (delayed charting seen at 0920) Principal diagnosis: shortness of breath Patient is a 59-year-old male with a past medical history of hypertension who presented as a transfer from [facility] due to COVID 19 infection. In [place] he underwent an extensive evaluation. He was found to be positive for COVID 19. He underwent a CT of the chest which was negative for any signs of pulmonary embolism but did demonstrate bilateral interstitial infiltrates. He was noted to have room air saturation of 92-95% on resting and down to the 80s of any type of exertion He was requiring oxygen at 4 L nasal cannula. There he was started on IV fluids and was transferred here for further monitoring. He had been confirmed COVID-19 positive on 12/19. In the ER he was started on dexamethasone. His was also started on rocehphin and doxycycline for possible secondary bacterial pneumonia, which were discontinued after a cough and was low. He was not a candidate for remdesevir due to duration of symptoms. He continued to improve slowly. Pulmonary in agreement with zinc, vit C, vit D, melatonin, and dexamethasone. Patient seen and examined at bedside. Feeling much better. Shortness of breath improving. No nausea, vomiting, diarrhea. Coughing is lessening. We discussed that he should stay off work until he is feeling 100% better to not delay his recovery. All questions answered regarding discharge plan, d/c tomorrow with wheelchair van General: ill appearing, no distress, appears at stated age Derm: warm, dry Head: atraumatic, normocephalic, symmetric Eyes: EOMI, no lid lag, anicteric sclera Mouth: no lip lesion, mucus membranes dry Cardiovascular: S1S2 reg, no murmur, positive posterior tibial pulse bilateral, Lungs rhonchi bilateral bases, no accessory muscle use Abdominal: soft, nontender to palpation, no guarding, no appreciable organomegaly Ext: no gross muscle atrophy, no edema, no contractures Neuro: CN II-XI grossly intact, no focal neuro deficits Psych: Alert, oriented, appropriate affect Covid 19 pneumonia with acute hypoxic respiratory failure, costochondritis - Continue with dexamethasone - Pulm recs appreciated - Not candidate for remdesevir due to length of symptoms - Procalcitonin normal off abx - Flu A and B are negative - Mucinex - Vitamin C, zinc, and vitamin D - melatonin - D-dimer mild elevation - Ferritin and LDH improving - CPK normal - troponin normal - echo normal Hypertension, controlled - ARB - Follow blood pressures Dyslipidemia - Lipitor Plan is for discharge in a.m. Arrangements have been made for wheelchair van perceptions have all been filled and are at bedside. Wheelchair van will be here at 8 AM on 01/02. Patient will not require home O2. DVT prophylaxis: Lovenox Discussed with: [facility] nursing, [facility] Anticipated discharge date: in AM Anticipated discharge place: home A total of 30 minutes was spent on the care of this complex patient more than 50% of the time was spent in counseling and care coordination. Objective - Vital Signs Vital signs: Vital Signs Temp 98.7 F 01/02/20 13:00 Pulse 77 01/02/20 13:00 Resp 16 01/02/20 13:00 BP 135/88 01/02/20 13:00 Pulse Ox 93 L 01/02/20 13:00 Intake & Output 01/01/20 01/02/20 01/02/20 18:59 06:59 18:59 Intake Total 1325 480 Balance 1325 480 Intake: Intake, IV Titration 825 Amount Sodium Chloride 0.9% 1, 825 000 ml @ 75 mls/hr IV . [id number] [facility] Rx#:[id number] Oral 500 480 Other: # Voids 3 0 2 # Bowel Movements 0 - Labs CBC & Chem 7: 01/02/20 06:52 01/01/20 10:18 Labs: Abnormal Lab Results - Last 24 Hours (Table) 01/02/20 01/02/20 01/02/20 Range/Units 06:52 06:52 06:52 RBC 4.28 L (4.30-5.90) m/uL APTT 21.8 L (22.0-30.0) sec D-Dimer 0.99 H (<0.60) mg/L FEU Ferritin 435.9 H (22.0-322.0) ng/mL Microbiology - Last 24 Hours (Table) 12/30/19 09:32 Blood Culture - Preliminary Blood No Growth after 72 hours 12/30/19 09:22 Blood Culture - Preliminary Blood No Growth after 72 hours 12/30/19 01:44 Blood Culture - Preliminary Blood No Growth after 72 hours
[2020-01-02] MEDS: LOSARTAN 50 MG TAB PO SCH (18:21)
[2020-01-02] MEDS: MELATONIN 5 MG TABLET PO SCH (21:03)
[2020-01-02 21:12] VITALS: TEMP 97.9
[2020-01-03 05:24] VITALS: BP 151/95; PULSE 68; RESP 18
[2020-01-03] MEDS: guaiFENesin 600 MG TABLET.ER PO SCH (07:44)
[2020-01-03] MEDS: ENOXAPARIN 40 MG/0.4 ML SYRINGE SQ SCH (07:44)
[2020-01-03] MEDS: LOSARTAN 50 MG TAB PO SCH (07:44)
[2020-01-03] MEDS: ASCORBIC ACID 500 MG TAB PO SCH (07:44)
[2020-01-03] MEDS: ZINC SULFATE 220 MG CAP PO SCH (07:45)
[2020-01-03] MEDS: dexAMETHasone 2 MG TAB PO SCH (07:45)
[2020-01-03] MEDS: CHOLECALCIFEROL 400 UNIT TAB PO SCH (07:45)
--- NOTE | 2020-01-03 20:38 | P.DS ---
Providers Date of admission: 12/30/19 01:15 Expected date of discharge: 01/03/20 Attending physician: Mikayla Sanchez DO Consults: 12/30/19 18:16 Consult Physician Routine Consulting Provider: Sae Gómez Reason/Comments: COVID 19 PNA Do you want consulting provider notified?: Yes Primary care physician: Physician Nonstaff Hospital Course: Discharge Diagnosis: COVID-19 pneumonia acute hypoxic respiratoy fialure costochondritis htn hld Hospital Course: Patient is a 59-year-old male with a past medical history of hypertension who presented as a transfer from [facility] due to COVID 19 infection. In [place] he underwent an extensive evaluation. He was found to be positive for COVID 19. He underwent a CT of the chest which was negative for any signs of pulmonary embolism but did demonstrate bilateral interstitial infiltrates. He was noted to have room air saturation of 92-95% on resting and down to the 80s of any type of exertion He was requiring oxygen at 4 L nasal cannula. There he was started on IV fluids and was transferred here for further monitoring. He had been confirmed COVID-19 positive on 12/19. In the ER he was started on dexamethasone. His was also started on rocehphin and doxycycline for possible secondary bacterial pneumonia, which were discontinued after a cough and was low. He was not a candidate for remdesevir due to duration of symptoms. He continued to improve slowly. Pulmonary in agreement with zinc, vit C, vit D, melatonin, and dexamethasone. He was no longer requiring oxygen and he had improved significantly. He was discharged home to complete his course of steroids.He will conitnue on the above vitamins and baby aspirin. He will follow with his PCP in 10 days. Patient seen and examined at bedside. Breathing better every day, no chest pain, no shortness of breath, no nausea, no vomiting. Vital signs reviewed and stable. General: non toxic, no distress, appears at stated age Derm: warm, dry Head: atraumatic, normocephalic, symmetric Eyes: EOMI, no lid lag, anicteric sclera Mouth: no lip lesion, mucus membranes moist Cardiovascular: S1S2 reg, no murmur, positive posterior tibial pulse bilateral, Lungs: CTA bilateral, no rhonchi, no rales , no accessory muscle use Abdominal: soft, nontender to palpation, no guarding, no appreciable organomegaly Ext: no gross muscle atrophy, no edema, no contractures Neuro: CN II-XI grossly intact, no focal neuro deficits Psych: Alert, oriented, appropriate affect A total of 35 minutes of time were spent preparing this complex discharge summary . Patient Condition at Discharge: Stable Plan - Discharge Summary Discharge Rx Participant: Yes New Discharge Prescriptions: New Aspirin 81 mg PO DAILY #5 chewable Dexamethasone 6 mg PO DAILY #5 tablet Melatonin 10 mg PO HS #5 tablet.er Zinc Sulfate [Orazinc] 220 mg PO DAILY #10 cap Pantoprazole [Protonix] 40 mg PO DAILY #5 tablet. Albuterol Inhaler [Ventolin Hfa Inhaler] 2 puff INHALATION RT-Q6H PRN #1 inch PRN Reason: Shortness Of Breath Or Wheezing Ascorbic Acid [Vitamin C] 1,000 mg PO DAILY tab Cholecalciferol [Vitamin D3] 400 unit PO DAILY tab Continue Atorvastatin [Lipitor] 40 mg PO DAILY Telmisartan 80 mg PO DAILY Discharge Medication List Atorvastatin [Lipitor] 40 mg PO DAILY 12/30/19 [History] Telmisartan 80 mg PO DAILY 12/30/19 [History] Albuterol Inhaler [Ventolin Hfa Inhaler] 2 puff INHALATION RT-Q6H PRN #1 inch 01/02/20 [Rx] Ascorbic Acid [Vitamin C] 1,000 mg PO DAILY tab 01/02/20 [Rx] Aspirin 81 mg PO DAILY #5 chewable 01/02/20 [Rx] Cholecalciferol [Vitamin D3] 400 unit PO DAILY tab 01/02/20 [Rx] Dexamethasone 6 mg PO DAILY #5 tablet 01/02/20 [Rx] Melatonin 10 mg PO HS #5 tablet.er 01/02/20 [Rx] Pantoprazole [Protonix] 40 mg PO DAILY #5 tablet. 01/02/20 [Rx] Zinc Sulfate [Orazinc] 220 mg PO DAILY #10 cap 01/02/20 [Rx] Follow up Appointment(s)/Referral(s): Nonstaff,Physician [Primary Care Provider] - 1-2 days Patient Instructions/Handouts: Grief and Loss (ED), Pneumonia (GEN) Activity/Diet/Wound Care/Special Instructions: Activity: as tolerated Diet: regular Special Instructions: Remain off work until fatigue and breathing back to 90% of baseline Recommended Reading: A Decembered Grief Living with loss while others are celebrating. José Manuel Jackson If your grief feels overwhelming consider the book: It's ok that you're not OK. Alejandra Ferrer "Some things cannot be fixed. They can only be carried." Discharge Disposition: HOME SELF-CARE
== END 2020-01-03 08:52 | disposition home or self-care (01) | DRG 177 ==
LOC: EC 00:55 → 6NMEDSUR 01:15
PROVIDERS: ADMIT Internal Medicine; ATTEND Internal Medicine
DX: U07.1 COVID-19 (principal); J12.89 Other viral pneumonia; J96.01 Acute respiratory failure with hypoxia; E78.5 Hyperlipidemia, unspecified; I10 Essential (primary) hypertension; M94.0 Chondrocostal junction syndrome [Tietze]; Z79.899 Other long term (current) drug therapy; Z82.49 Family history of ischemic heart disease and other diseases of the circulatory system; Z83.3 Family history of diabetes mellitus
CPT/HCPCS: 36415; 71045; 71046; 80048; 80053; 82550; 82728; 83605; 83615; 83735; 83880; 84145; 84484; 85025; 85379; 85610; 85730; 86140; 87040; 93005; 93306; 94640; 96361; 96365; 96366; 99285